=== PATIENT | female | born 1980 | race Caucasian/White ===

== ENCOUNTER 2016-05-14 13:00 | Inpatient (IN) | payer MEDICAID ==
[~2016-05-14] VITALS: Ht 167.6 cm; Wt 121.4 kg
--- NOTE | ~2016-05-14 | OR ---
PATIENT'S NAME: ELISABETH LIRA [facility] AGE: 35 Y [address] ROOM: [place] [id number] LOCATION: GOBS ADMIT DATE: 05/27/2016 OR/Procedure Report DISCHARGE DATE: FAMILY PHYSICIAN: Tiesha Feliciano MD ATTENDING PHYSICIAN: Maximo Amaya SURGEON: Maximo Amaya MD SUPREME COURT JUSTICE: Bentley La MD. Dr. La's assistance was required due to the complexity of the case. DATE OF PROCEDURE: 05/27/2016 PREOPERATIVE DIAGNOSES: 1. Pelvic relaxation. 2. Uterine prolapse. 3. Cystocele. 4. Cystourethrocele. 5. Minimal rectocele. 6. Stress urinary incontinence. POSTOPERATIVE DIAGNOSES: 1. Pelvic relaxation. 2. Uterine prolapse. 3. Cystocele. 4. Cystourethrocele. 5. Minimal rectocele. 6. Stress urinary incontinence. PROCEDURE: Total vaginal hysterectomy, right-sided salpingectomy, anterior colporrhaphy, mid urethral sling by Dr. Coffey. ANESTHESIA: General endotracheal anesthesia. ESTIMATED BLOOD LOSS: 200 mL. CLINICAL INDICATION: Elisabeth Lira is a 35-year-old female with symptomatic pelvic relaxation. She has stress urinary incontinence, discomfort, and prolapse. She desires to undergo a surgical repair. She has a grade 2 uterine prolapse, grade 2 cystocele, and minimal rectocele. She also has stress urinary incontinence. FINDINGS: Grade 2 uterine prolapse, grade 2 cystourethrocele, minimal rectocele. Tubes and ovaries appeared normal. Uterus normal. DESCRIPTION OF PROCEDURE: The patient was taken to the operating room, given general endotracheal anesthesia with good results, placed in a lithotomy position, prepped and draped in the usual fashion. Posterior weighted PATIENT'S NAME: ELISABETH LIRA [facility] AGE: 35 Y [address] ROOM: [place] [id number] LOCATION: BS ADMIT DATE: 05/27/2016 OR/Procedure Report DISCHARGE DATE: FAMILY PHYSICIAN: Tiesha Feliciano MD ATTENDING PHYSICIAN: Maximo Amaya speculum and anterior vaginal wall retractor were inserted into the vagina. Thyroid Luis clamp was placed about the cervix. The vaginal mucosa, at the cervical vaginal reflection, was injected with lidocaine and incised with a scalpel. The incision was carried out in a circumferential fashion. The submucosa was dissected using a combination of sharp and blunt dissection. A posterior colpotomy was performed. The anterior colpotomy was performed later in the procedure due to the long length of the cervix. The uterosacral and cardinal pedicles were secured bilaterally using the LigaSure. Then, the anterior colpotomy incision was performed. Broad ligaments and round ligaments were secured using the LigaSure. The uterus was delivered posteriorly. The infundibulopelvic pedicles were released with the LigaSure and secured using an anchored stitch of 0 Vicryl suture. The specimen was removed from the operative field. The right fallopian tube was identified and to be brought to the midline and the LigaSure was used to release the right fallopian tube. We were already able to identify the left fallopian tube; however, we could not bring into a position which would be readily amenable to removal, as such we left it in place. Both ovaries appeared normal. Lateral vaginal angles were secured using single interrupted stitches of 0 Vicryl suture, pelvic peritoneum was closed with a running continuous stitch of 2-0 Vicryl suture, vaginal cuff was closed with a running continuous stitch of 0 Vicryl suture. We then turned our attention to the colporrhaphy. The mucosa was injected with lidocaine. The mucosa was undermined and then incised vertically in the midline with Metzenbaum scissors. Submucosa was dissected using a combination of sharp and blunt dissection. At this point time, we stepped aside. Dr. Coffey placed the transvaginal tape. Please see his dictation for specifics. We then reapproximated the endopelvic fascia using a series of horizontal mattress stitches of 0 Vicryl suture in 2 layers. The redundant mucosa was then excised with scissors. The mucosa was then reapproximated using a running continually locking stitch of 0 Vicryl suture. Good hemostasis was obtained. The Catherine and vaginal pack were inserted. Sponge, needle, and instrument counts were correct. The patient tolerated the procedure well and was taken to the recovery room in good condition. MD GIOVANY LAFLEUR/modl /[id number] d: 05/27/16 1839 t: 06/10/16 0721, OPERATIVE SUMMARY
--- NOTE | ~2016-05-14 | OR ---
PATIENT'S NAME: ELISABETH LIRA [facility] AGE: 35 Y [address] ROOM: [place] [id number] LOCATION: GOBS ADMIT DATE: 05/27/2016 OR/Procedure Report DISCHARGE DATE: FAMILY PHYSICIAN: Tiesha Feliciano MD ATTENDING PHYSICIAN: Maximo Amaya SURGEON: Linda Robledo MD BUNDLE HELPER: Maximo Amaya M.D. DATE OF PROCEDURE: 05/27/2016 PREOPERATIVE DIAGNOSIS: Stress urinary incontinence. POSTOPERATIVE DIAGNOSIS: Stress urinary incontinence. PROCEDURE PERFORMED: Midurethral suspension. ANESTHESIA: General. COMPLICATIONS: None. INDICATION FOR PROCEDURE: The patient is a 35-year-old female with stress urinary incontinence, also scheduled to undergo hysterectomy and cystocele repair. DETAILS OF PROCEDURE: After informed consent was obtained, the patient was taken to the operating room. Dr. Amaya completed his hysterectomy and opened up the anterior vaginal wall. He also developed a space into the endopelvic fascia bilaterally. Two small skin incisions were made over the pubic bone bilaterally. Next, the TVT needle was passed through the abdominal incision out the anterior vaginal wall bilaterally. Cystoscopy was then performed, which revealed that the needles had not penetrated the bladder wall. Next, Catherine catheter was placed and the bladder emptied. The sling device was attached to the end of each needle and pulled through. Heavy curved scissors were used as a spacing device. The sheath was cut and pulled through locking a sling in position. The excess was excised at the abdominal wall. The patient tolerated this part of the procedure well. At this point, Dr. Amaya continued with his operation. LINDA ROBLEDO MD SG/modl PATIENT'S NAME: ELISABETH LIRA [facility] AGE: 35 Y [address] ROOM: [place] [address] LOCATION: GOBS ADMIT DATE: 05/27/2016 OR/Procedure Report DISCHARGE DATE: FAMILY PHYSICIAN: Tiesha Feliciano MD ATTENDING PHYSICIAN: Maximo Amaya /[id number] CC: MD Tawanda Rudd MD d: 05/27/16 1657 t: 06/10/16 0942, OPERATIVE SUMMARY
[2016-05-15] MEDS ORDERED: PRILOSEC20 MG PO (14:09)
[2016-05-15] MEDS ORDERED: ZOLOFT100 MG PO (14:09)
[2016-05-15] MEDS ORDERED: CLARITIN10 MG PO (14:09)
[2016-05-15] MEDS ORDERED: MUCINEX1200 MG PO (14:09)
[2016-05-15] MEDS ORDERED: SINGULAIR10 MG PO (14:10)
[2016-05-15] MEDS ORDERED: THERAGRAN-M1 TAB PO (14:11)
[2016-05-15] MEDS ORDERED: PROAIR HFA8.5 GM INH (14:11)
[2016-05-15] MEDS ORDERED: TYLENOL EXTRA500 MG PO (14:12)
[2016-05-15] MEDS ORDERED: ADVIL200 MG PO (14:12)
[2016-05-15] MEDS ORDERED: BENADRYL25 MG PO (14:13)
[2016-05-15] MEDS ORDERED: EPIPEN0.3 MG IM (14:13)
[2016-05-27 06:35] LABS: BASOPHIL # 0.1 K/uL (0.0-0.2); BASOPHIL % 0.7 %; EOSINOPHIL # 0.2 K/uL (0.0-0.5); EOSINOPHIL % 2.4 %; HEMATOCRIT 36.7 % (33.0-46.0); HEMOGLOBIN 11.9 g/dL (11.0-15.0); IMMATURE GRANULOCYTE # 0.1 K/uL (0.0-0.3); IMMATURE GRANULOCYTE % 0.8 %; LYMPHOCYTE # 2.6 K/uL (0.8-4.0); LYMPHOCYTE % 26.4 %; MCH 26.6 pg (27.0-34.0); MCHC 32.4 gm/dL (32.0-36.5); MCV 81.9 fl (83.0-98.0); MONOCYTE # 0.7 K/uL (0.0-1.0); MONOCYTE % 6.9 %; MPV 9.2 fl (9.4-12.4); NEUTROPHIL # (ANC) 6.3 K/uL (1.8-7.8); NEUTROPHIL % 62.8 %; NRBC % 0 /100WBC (0-0.00); PLATELET COUNT 281 K/uL (150-450); RBC 4.48 M/uL (3.50-5.50); RDW-CV 14.8 % (11.9-14.6)
--- NOTE | 2016-05-28 03:32 | NUR ---
patient rates pain from a 7-10 consistently throughout the shift. when observed, patiently repeatedly appears to be resting in bed, many times her eyes are closed. not showing signs of distress.
[2016-05-28 05:28] LABS: BASOPHIL % 0.2 %; HEMOGLOBIN 10.3 g/dL (11.0-15.0); IMMATURE GRANULOCYTE # 0.1 K/uL (0.0-0.3); IMMATURE GRANULOCYTE % 0.7 %; LYMPHOCYTE # 1.5 K/uL (0.8-4.0); LYMPHOCYTE % 12.3 %; MCH 26.9 pg (27.0-34.0); MCHC 32.2 gm/dL (32.0-36.5); MCV 83.6 fl (83.0-98.0); MONOCYTE # 0.8 K/uL (0.0-1.0); MONOCYTE % 6.1 %; MPV 9.4 fl (9.4-12.4); NEUTROPHIL # (ANC) 10.1 K/uL (1.8-7.8); NEUTROPHIL % 80.7 %; NRBC % 0 /100WBC (0-0.00); PLATELET COUNT 240 K/uL (150-450); RBC 3.83 M/uL (3.50-5.50); RDW-CV 14.8 % (11.9-14.6); WBC 12.5 K/uL (4.0-11.0)
--- NOTE | 2016-05-28 05:31 | NUR ---
VSS. O2 SAT RUNS IN THE LOWER 90S. ON MORPHINE C[employer]IC, DOSED HERSELF X5 DURING THE NIGHT. LAST HAD 2 PERCOCET AT 0319. ZELAYA DRAINS CLEAR YELLOW URINE.
--- NOTE | 2016-05-28 10:50 | NUR ---
Catherine DC'd with 260ml of clear yellow urine in bag. Patient tolerated well.
[2016-05-28] MEDS ORDERED: MOTRIN800 MG PO (12:37)
[2016-05-28] MEDS ORDERED: PERCOCET 5-3251 EACH PO (12:38)
== END 2016-05-28 17:05 | disposition disaster alternative care site (69) | DRG 742 ==
LOC: GOBS 05-27 05:42 → GMSU 05-27 05:42 → GOBS 05-28 17:05
PROVIDERS: ADMIT Obstetrics & Gynecology
PROC: 0JQC0ZZ Repair Pelvic Region Subcutaneous Tissue and Fascia, Open Approach (ICD-10-PCS; principal; 2016-05-27)
PROC: 0UT57ZZ Resection of Right Fallopian Tube, Via Natural or Artificial Opening (ICD-10-PCS; principal; 2016-05-27)
PROC: 0UT97ZZ Resection of Uterus, Via Natural or Artificial Opening (ICD-10-PCS; principal; 2016-05-27)
PROC: 0TSD0ZZ Reposition Urethra, Open Approach (ICD-10-PCS; principal; 2016-05-27)
PROC: 0UTC7ZZ Resection of Cervix, Via Natural or Artificial Opening (ICD-10-PCS; principal; 2016-05-27)
DX: N81.89 Other female genital prolapse (principal); Z68.41 Body mass index [BMI] 40.0-44.9, adult; F32.9 Major depressive disorder, single episode, unspecified; N81.2 Incomplete uterovaginal prolapse; N39.3 Stress incontinence (female) (male); J45.909 Unspecified asthma, uncomplicated; K21.9 Gastro-esophageal reflux disease without esophagitis; Z87.891 Personal history of nicotine dependence; E66.3 Overweight
CPT/HCPCS: C2631; J0690; J0694; J1100; J1170; J1885; J2001; J2250; J2270; J2405; J2765; J3010; J7040; J7120

== ENCOUNTER → 2016-07-29 | Outpatient (CLI) | payer MEDICAID ==
[~2016-07-29] MED LIST: ADVIL200 MG PO; BENADRYL25 MG PO; CLARITIN10 MG PO; EPIPEN0.3 MG IM; MOTRIN800 MG PO; MUCINEX1200 MG PO; PERCOCET 5-3251 EACH PO; PRILOSEC20 MG PO; PROAIR HFA8.5 GM INH; SINGULAIR10 MG PO; THERAGRAN-M1 TAB PO; TYLENOL EXTRA500 MG PO; ZOLOFT100 MG PO
== END | disposition disaster alternative care site (69) ==
LOC: GRAD 12:00
DX: R07.9 Chest pain, unspecified (principal); R06.02 Shortness of breath; R79.1 Abnormal coagulation profile